=== PATIENT | female | born 1990 | race American Indian/Alaskan Native ===

== ENCOUNTER 2017-06-12 20:23 | Emergency (ER) | payer MEDICAID ==
[2017-06-12 21:31] LABS: Basophils % (Auto) 0.4 % (0.0-1.8); Eosinophils % (Auto) 1.1 % (0.0-4.3); Hematocrit 33.4 % (30.3-42.9); Mean Corpuscular HGB Conc 33 % (30-34); Mean Corpuscular Hemoglobin 27 pg (28-32); Mean Corpuscular Volume 81 fl (79-97); Platelet Count 204 K/mm3 (140-440); Red Blood Count 4.12 M/mm3 (3.65-5.03); White Blood Count 10.1 K/mm3 (4.5-11.0)
[2017-06-12 21:51] LABS: Anion Gap 17 mmol/L; Blood Urea Nitrogen 7 mg/dL (7-17); Calcium 8.9 mg/dL (8.4-10.2); Carbon Dioxide 24 mmol/L (22-30); Chloride 99.6 mmol/L (98-107); Glucose 88 mg/dL (65-100); Potassium 3.6 mmol/L (3.6-5.0); Sodium 137 mmol/L (137-145)
[2017-06-12 22:10] LABS: Bacteria,Urine 1+ /HPF (Negative); Bilirubin,Urine NEG (Negative); Blood,Urine NEG (Negative); Ketones,Urine NEG (Negative); Leukocyte Esterase,Urine MOD (Negative); Mucus,Urine 2+ /HPF; Nitrite,Urine NEG (Negative); Protein,Urine <15 mg/dL mg/dL (Negative); Urobilinogen,Urine < 2.0 mg/dL (<2.0)
--- NOTE | 2017-06-12 23:42 | Ultrasound Report ---
FINAL REPORT PROCEDURE: Obstetrical ultrasound. TECHNIQUE: Real-time transabdominal sonography of the uterus, placenta, amniotic fluid, adnexa, and fetus was performed with image documentation. Measurements were obtained to determine age/size. M-mode Doppler was used to document heartbeat. CPT 13080 HISTORY: , lower abdominal pain. COMPARISON: No prior studies are available for comparison. FINDINGS: There is a single intrauterine fetus in cephalic presentation. Cardiac activity is documented at 145 beats per minute. It is too early to do a detailed anatomical survey. The amniotic fluid volume appears normal. The placenta is posterior and fundal in location with no evidence of placenta previa. The cervix measures approximately 5.2 centimeters in length. The measured parameters are as follows: Biparietal diameter 3.0 centimeters, head circumference 11.1 centimeters, abdominal circumference 9.2 centimeters, femur length 1.9 centimeters. The calculated menstrual age by ultrasound is 15 weeks 3 days. The estimated date of confinement is 12/01/2017. The estimated weight is currently 125 grams. IMPRESSION: Single viable fetus in cephalic presentation with a menstrual age of 15 weeks 3 days.
[2017-06-13] MEDS ORDERED: ZOFRAN IV ONE (00:40)
[2017-06-13] MEDS ORDERED: D5/0.45NS 1,000 ML IV SCH (01:00)
[2017-06-13] MEDS ORDERED: ZOFRAN ODT PO ONE (01:26)
[2017-06-13 01:36] VITALS: BP 104/59
--- NOTE | 2017-06-13 02:04 | Emergency Department Report ---
ED HPI - General Chief complaint: Nausea/Vomiting/Diarrhea Stated complaint: PREG UNKNOWN WKS/EMESIS/ABD PAIN Time Seen by Provider: 06/13/17 02:01 Source: patient, RN notes reviewed Mode of arrival: Ambulatory Limitations: No Limitations - History of Present Illness Initial comments: This is a 26-year-old female. She is previously unknown to me. She is 5, para 3. Last menstrual period this week of February 16. Her [facility] SAL[facility] doctor is Dr. Jones in [place]. She reports a past medical history of anxiety, and takes as needed Vistaril. The patient presents to the ER today with abdominal cramping, nausea, vomiting and diarrhea. This is been going on for the past 3 days. Symptoms worsened when she eats and drinks. They decrease with rest. She vomited twice in the past 24 hours. It is nonbloody and nonbilious. She reports no episodes of diarrhea in the past 24 hours. She denies irritative and obstructive urinary symptoms. Her nausea symptoms were resolved with administration of oral Zofran. No vaginal bleeding. No right lower quadrant pain. -: Gradual Severity: mild Quality: cramping Consistency: intermittent Associated symptoms: nausea/vomiting, abdominal pain, weakness. denies: vaginal bleeding, vaginal discharge, dysuria, vision changes, dysparuenia, rash , seizure, shortness of breath, syncope Vaginal bleeding: none :: Yes OB History - Current : no complications Pre- care: none - Related Data Previous Rx's Medication Instructions Recorded Last Taken Type Doxylamine/Pyridoxine HCl 1 each PO QHS PRN #30 tablet. 06/13/17 Unknown Rx [Alexa Wilkinson 10-10 mg Tablet] Yajaira Root [Yajaira] 250 mg PO QID PRN #30 capsule 06/13/17 Unknown Rx Vit W-Ca,Fe,FA(<1 mg) 1 each PO QDAY #30 tablet 06/13/17 Unknown Rx [ Vitamins] Allergies Allergy/AdvReac Type Severity Reaction Status Date / Time No Known Allergies Allergy Verified 06/12/17 21:06 ED Review of Systems ROS: Stated complaint: PREG UNKNOWN WKS/EMESIS/ABD PAIN Other details as noted in HPI Constitutional: denies: fever, malaise Eyes: denies: vision change ENT: denies: epistaxis Respiratory: denies: cough Cardiovascular: denies: chest pain Gastrointestinal: abdominal pain, nausea, vomiting, diarrhea Genitourinary: denies: urgency Musculoskeletal: denies: arthralgia Skin: denies: lesions Neurological: denies: weakness Psychiatric: as per HPI ED Past Medical Hx - Past Medical History Previous Medical History?: Yes Hx Psychiatric Treatment: Yes (ANXIETY) - Surgical History Past Surgical History?: No - Social History Smoking Status: Former Smoker Substance Use Type: Alcohol - Medications Home Medications: Home Medications Medication Instructions Recorded Confirmed Last Taken Type Doxylamine/Pyridoxine HCl 1 each PO QHS PRN #30 tablet.dr 06/13/17 Unknown Rx [Diclegis Dr 10-10 mg Tablet] Yajaira Root [Yajaira] 250 mg PO QID PRN #30 capsule 06/13/17 Unknown Rx Vit W-Ca,Fe,FA(<1 mg) 1 each PO QDAY #30 tablet 06/13/17 Unknown Rx [ Vitamins] ED Physical Exam - General Limitations: No Limitations General appearance: alert, in no apparent distress - Head Head exam: Present: atraumatic, normocephalic - Eye Eye exam: Present: normal appearance, EOMI. Absent: nystagmus - ENT ENT exam: Present: normal exam, normal orophraynx, mucous membranes moist, normal external ear exam - Neck Neck exam: Present: normal inspection, full ROM. Absent: tenderness, meningismus - Respiratory Respiratory exam: Present: normal lung sounds bilaterally. Absent: respiratory distress, wheezes, rales, rhonchi, stridor, chest wall tenderness, accessory muscle use, decreased breath sounds, prolonged expiratory - Cardiovascular Cardiovascular Exam: Present: regular rate, normal rhythm, normal heart sounds. Absent: bradycardia, tachycardia, irregular rhythm, systolic murmur, diastolic murmur, rubs, gallop - GI/Abdominal GI/Abdominal exam: Present: soft, normal bowel sounds. Absent: distended, tenderness, guarding, rebound, rigid, pulsatile mass - Extremities Exam Extremities exam: Present: normal inspection, full ROM, normal capillary refill. Absent: pedal edema, joint swelling, calf tenderness - Back Exam Back exam: Present: normal inspection, full ROM. Absent: tenderness, CVA tenderness (R), CVA tenderness (L), muscle spasm, paraspinal tenderness, vertebral tenderness - Neurological Exam Neurological exam: Present: alert, oriented X3, normal gait, other (Extraocular movements intact. Tongue midline. No facial droop. Facial sensation intact to light touch in the V1, V2, V3 distribution bilaterally. 5 and 5 strength in 4 extremities.. Sensation is intact to light touch in 4 extremities.). Absent : motor sensory deficit - Psychiatric Psychiatric exam: Present: normal affect, normal mood - Skin Skin exam: Present: warm, dry, intact, normal color. Absent: rash ED Course Vital Signs 06/12/17 06/13/17 06/13/17 21:07 00:41 01:35 Temperature 98.3 F Pulse Rate 94 H 88 Respiratory 18 15 15 Rate Blood Pressure 123/94 Blood Pressure 104/59 [Left] O2 Sat by Pulse 100 99 100 Oximetry ED Medical Decision Making - Lab Data Result diagrams: 06/12/17 21:26 06/12/17 21:26 Vital Signs 06/12/17 06/13/17 06/13/17 21: 00:41 01:35 Temperature 98.3 F Pulse Rate 94 H 88 Respiratory 18 15 15 Rate Blood Pressure 123/94 Blood Pressure 104/59 [Left] O2 Sat by Pulse 100 99 100 Oximetry Lab Results 06/12/17 06/12/17 06/12/17 Range/Units 21:26 21:26 21:26 WBC 10.1 (4.5-11.0) K/mm3 RBC 4.12 (3.65-5.03) M/mm3 Hgb 11.0 (10.1-14.3) gm/dl Hct 33.4 (30.3-42.9) % MCV 81 (79-97) fl MCH 27 L (28-32) pg MCHC 33 (30-34) % RDW 14.0 (13.2-15.2) % Plt Count 204 (140-440) K/mm3 Lymph % (Auto) 30.9 (13.4-35.0) % [place] % (Auto) 5.3 (0.0-7.3) % Eos % (Auto) 1.1 (0.0-4.3) % Baso % (Auto) 0.4 (0.0-1.8) % Lymph # 3.1 (1.2-5.4) K/mm3 [place] # 0.5 (0.0-0.8) K/mm3 Eos # 0.1 (0.0-0.4) K/mm3 Baso # 0.0 (0.0-0.1) K/mm3 Seg Neutrophils % 62.3 (40.0-70.0) % Seg Neutrophils # 6.3 (1.8-7.7) K/mm3 Sodium 137 (137-145) mmol/L Potassium 3.6 (3.6-5.0) mmol/L Chloride 99.6 (98-107) mmol/L Carbon Dioxide 24 (22-30) mmol/L Anion Gap 17 mmol/L BUN 7 (7-17) mg/dL Creatinine 0.4 L (0.7-1.2) mg/dL Estimated GFR > 60 ml/min BUN/Creatinine Ratio 17.50 % Glucose 88 (65-100) mg/dL Calcium 8.9 (8.4-10.2) mg/dL HCG, Quant 19764 H (0-4) mIU/mL Urine Color (Yellow) Urine Turbidity (Clear) Urine pH (5.0-7.0) Ur Specific [place] (1.003-1.030) Urine Protein (Negative) mg/dL Urine Glucose (UA) (Negative) mg/dL Urine Ketones (Negative) mg/dL Urine Blood (Negative) Urine Nitrite (Negative) Urine Bilirubin (Negative) Urine Urobilinogen (<2.0) mg/dL Ur Leukocyte Esterase (Negative) Urine WBC (Auto) (0.0-6.0) /HPF Urine RBC (Auto) (0.0-6.0) /HPF U Epithel Cells (Auto) (0-13.0) /HPF Urine Bacteria (Auto) (Negative) /HPF Urine Mucus /HPF 06/12/17 Range/Units 21:46 WBC (4.5-11.0) K/mm3 RBC (3.65-5.03) M/mm3 Hgb (10.1-14.3) gm/dl Hct (30.3-42.9) % MCV (79-97) fl MCH (28-32) pg MCHC (30-34) % RDW (13.2-15.2) % Plt Count (140-440) K/mm3 Lymph % (Auto) (13.4-35.0) % [place] % (Auto) (0.0-7.3) % Eos % (Auto) (0.0-4.3) % Baso % (Auto) (0.0-1.8) % Lymph # (1.2-5.4) K/mm3 [place] # (0.0-0.8) K/mm3 Eos # (0.0-0.4) K/mm3 Baso # (0.0-0.1) K/mm3 Seg Neutrophils % (40.0-70.0) % Seg Neutrophils # (1.8-7.7) K/mm3 Sodium (137-145) mmol/L Potassium (3.6-5.0) mmol/L Chloride (98-107) mmol/L Carbon Dioxide (22-30) mmol/L Anion Gap mmol/L BUN (7-17) mg/dL Creatinine (0.7-1.2) mg/dL Estimated GFR ml/min BUN/Creatinine Ratio % Glucose (65-100) mg/dL Calcium (8.4-10.2) mg/dL HCG, Quant (0-4) mIU/mL Urine Color Yellow (Yellow) Urine Turbidity Clear (Clear) Urine pH 6.0 (5.0-7.0) Ur Specific [place] 1.023 (1.003-1.030) Urine Protein <15 mg/dl (Negative) mg/dL Urine Glucose (UA) Neg (Negative) mg/dL Urine Ketones Neg (Negative) mg/dL Urine Blood Neg (Negative) Urine Nitrite Neg (Negative) Urine Bilirubin Neg (Negative) Urine Urobilinogen < 2.0 (<2.0) mg/dL Ur Leukocyte Esterase Mod (Negative) Urine WBC (Auto) 1.0 (0.0-6.0) /HPF Urine RBC (Auto) 7.0 (0.0-6.0) /HPF U Epithel Cells (Auto) 8.0 (0-13.0) /HPF Urine Bacteria (Auto) 1+ (Negative) /HPF Urine Mucus 2+ /HPF - Radiology Data Radiology results: report reviewed, image reviewed Obstetrics ultrasound demonstrates a 15 week viable , heartbeat 145 bpm. 2 early to perform detailed anatomical survey. No evidence of placenta previa. - Medical Decision Making Differential diagnosis: , nausea and vomiting of , hyperemesis Assessment and plan: 26-year-old female with complaint of abdominal cramping, nausea, vomiting and diarrhea. She is afebrile with reassuring vital signs. She is improved at the [facility] and is able to tolerate liquid feeds. Urinalysis is not consistent with UTI, no right lower quadrant tenderness, patient feels improved. Patient will be discharged with appropriate nausea medication, vitamins, instructions to follow up. Return precautions are reviewed. Critical care attestation.: If time is entered above; I have spent that time in minutes in the direct care of this critically ill patient, excluding procedure time. ED Disposition Clinical Impression: Disposition: DC-01 TO HOME OR SELFCARE Is pt being admited?: No Does the pt Need Aspirin: No Condition: Stable Instructions: Hyperemesis Gravidarum (ED) Additional Instructions: Discontinue consumption of Vistaril. This medication is not safe or appropriate for . Take nausea medication and vitamins as directed. Adhere to a bland diet, and follow up with an outpatient film laboratory technician as soon as possible. Return to the ER right away with new pain, worsened pain, migration of pain, fevers, chills, chest pain, shortness of breath, confusion, intractable nausea or vomiting, inability to tolerate liquid feeds. Prescriptions: Doxylamine/Pyridoxine HCl [Alexa Wilkinson 10-10 mg Tablet] 1 each PO QHS PRN #30 tablet. PRN Reason: Nausea Yajaira Root [Yajaira] 250 mg PO QID PRN #30 capsule PRN Reason: Nausea Vit W-Ca,Fe,FA(<1 mg) [ Vitamins] 1 each PO QDAY #30 tablet Referrals: ERASTO FREEMAN MD [Primary Care Provider] - 3-5 Days [facility] [Provider Group] - 3-5 Days [facility] [Provider Group] - 3-5 Days [facility] [Provider Group] - 3-5 Days Forms: Work/School Release Form(ED)
== END 2017-06-13 02:33 | disposition home or self-care (01) ==
LOC: ED 20:23
DX: O21.9 Vomiting of pregnancy, unspecified (principal); O26.892 Other specified pregnancy related conditions, second trimester; R10.9 Unspecified abdominal pain; R11.0 Nausea; F41.9 Anxiety disorder, unspecified; Z87.891 Personal history of nicotine dependence; Z3A.12 12 weeks gestation of pregnancy
CPT/HCPCS: 36415; 76805; 80048; 81001; 84702; 85025; Q0162

== ENCOUNTER 2018-01-08 05:52 | Day surgery (SDC) | payer MEDICAID ==
[~2018-01-08 05:52] MED LIST: MARCAINE 0.5% INFILTRATI ONE
[2018-01-08] MEDS ORDERED: MARCAINE 0.5% 30 ML INFILTRATI ONE (07:14)
--- NOTE | 2018-01-08 07:44 | Anesthesia Day of Surgery ---
Anesthesia Day of Surgery - Day of Surgery Patient Examined: Yes Patient H&P Reviewed: Yes Patient is NPO: Yes
--- NOTE | 2018-01-08 07:44 | Anesthesia Consultation ---
Anesthesia Consult and Med Hx Date of service: 01/08/18 - Airway Anesthetic Teeth Evaluation: Good ROM Head & Neck: Adequate Mental/Hyoid Distance: Adequate Mallampati Class: Class II Intubation Access Assessment: Probably Good - Pulmonary Exam CTA: Yes - Cardiac Exam Cardiac Exam: RRR - Pre-Operative Health Status ASA Pre-Surgery Classification: ASA2 Proposed Anesthetic Plan: General - Pulmonary Hx Smoking: Yes Hx Asthma: No COPD: No Hx Pneumonia: No - Cardiovascular System Hx Hypertension: No Hx Heart Murmur: Yes (as a child) - Central Nervous System Hx Seizures: Yes (as a child, from age [age]) Hx Psychiatric Problems: No - Endocrine Hx Renal Disease: No Hx End Stage Renal Disease: No Hx Hypothyroidism: No Hx Hyperthyroidism: No - Hematic Hx Anemia: No Hx Sickle Cell Disease: No - Other Systems Hx Alcohol Use: Yes (occas) Hx Cancer: No
[2018-01-08] MEDS ORDERED: DILAUDID ONE (07:55)
[2018-01-08] MEDS ORDERED: XYLOCAINE MPF 2% ONE ×2 (07:55)
[2018-01-08] MEDS ORDERED: DIPRIVAN 10 MG/ML IV ONE (07:55)
[2018-01-08] MEDS ORDERED: ZEMURON IV ONE (07:56)
[2018-01-08] MEDS ORDERED: VERSED IV NR (08:00)
[2018-01-08] MEDS ORDERED: PEPCID PO NR (08:00)
[2018-01-08] MEDS ORDERED: LACTATED RINGERS 1,000 ML IV SCH (08:00)
[2018-01-08] MEDS ORDERED: ZOFRAN ONE (09:55)
[2018-01-08] MEDS ORDERED: TORADOL ONE (09:55)
[2018-01-08] MEDS ORDERED: NACL 0.9% 1000 ML 1,000 ML ONE (09:57)
[2018-01-08] MEDS ORDERED: NEOSTIGMINE ONE (09:59)
[2018-01-08] MEDS ORDERED: ROBINUL ONE (09:59)
[2018-01-08] MEDS ORDERED: MARCAINE 0.5% INFILTRATI ONE (10:03)
[2018-01-08] MEDS ORDERED: ZOFRAN IV PRN (10:39)
[2018-01-08] MEDS ORDERED: DILAUDID IV PRN (10:39)
[2018-01-08] MEDS ORDERED: PERCOCET 5/325 PO PRN (11:00)
--- NOTE | 2018-01-08 11:57 | Post Anesthesia Evaluation ---
- Post Anesthesia Evaluation Patient Participated: Yes Airway Patent: Yes Stable Respiratory Function: Yes Nausea/Vomiting: No Temp > 96.8F: Yes Pain Manageable: Yes Adequeate Hydration: Yes Anesthesia Complications: No
[2018-01-08 13:09] VITALS: BP 133/76
--- NOTE | 2018-01-17 17:30 | Operative Report ---
Operative Report Operative Report: Preoperative diagnosis: 1. Multiparity, desires permanent sterilization. Postoperative diagnosis: same Procedure: Laparoscopic tubal sterilization via cautery. Surgeon: Dr. Herrera Anesthesia: general EBL: 2 cc IVF: 1 L RL Complications: none Findings: Normal uterus, fallopian tubes, and ovaries. Procedure details: Risks, benefits, and alternatives of the procedure were discussed in detail with the patient which included but not limited to risk of infection, hemorrhage requiring blood transfusion, injury to the bowel and blood vessels, failure of the tubal sterilization to prevent which can result in undesired with an increased risk of ectopic . The patient expressed understanding, her questions were answered, and she gave her informed consent. The patient was taken to the operating room with an IV fluid infusing Ringer's lactate. In the operating room, she was placed in a dorsal supine position and given general anesthesia. She was then placed in a dorsolithotomy position. The abdomen, perineum, vagina, and cervix were washed and she was prepared and draped in the usual sterile fashion. A bivalve speculum was then placed in the vagina and the anterior lip of the cervix was grasped with a single-tooth tenaculum. A HUMI uterine manipulator was then advanced into the uterine cavity to provide a means of manipulating the uterus during the procedure. The speculum was then removed from the vagina. Lind catheter was placed. Attention was then tented up patient's abdomen where a 5 mm skin incision was made in the umbilical fold. The Veress needle was introduced into the peritoneal cavity at a 45 angle while tenting the abdominal wall. Intraperitoneal placement was confirmed by using a water-filled syringe and by noticing a drop in the intra-abdominal pressure with CO2 gas insufflation. The trocar and sleeves were then advanced without difficulty into the abdomen where intraperitoneal placement was confirmed by using the laparoscope. Pneumoperitoneum was obtained with 3.5 of CO2 gas. Then, a second 5 mm skin incision was made in the suprapubic region and a 5 mm trocar and sleeve were then advanced without any difficulty into the abdomen under direct visualization with the laparoscope. A survey of the patient's anatomy revealed normal uterus, fallopian tubes, and ovaries bilaterally. Bipolar cautery was used to cauterize the mid-segment of the left fallopian tube which was then transected using an Endo scissor. A similar procedure was done with the right fallopian tube which was cauterized and transected. After confirming adequate hemostasis, the trocars ports were open to release the CO2 gas from the abdomen. Then, the trochars were removed from the abdominal cavity under direct visualization using the laparoscope. The skin incisions at trocar sites were closed with 3 Vicryl sutures and Steri- Strips were placed. The HUMI manipulator was removed from the uterine cavity. The Fioley was removed. The counts of laps, needles, sponges, and instruments were correct 2. The patient tolerated the procedure well. She was awaken from the anesthesia and taken to do the recovery room in a stable condition.
== END 2018-01-08 12:30 | disposition home or self-care (01) ==
LOC: OR 05:52
PROVIDERS: ATTEND Obstetrics & Gynecology
DX: Z30.2 Encounter for sterilization (principal); F17.200 Nicotine dependence, unspecified, uncomplicated; Z98.890 Other specified postprocedural states
CPT/HCPCS: 58670; 81025; J1170; J1885; J2250; J2405; J2704; J2710; J7030; J7120